=== PATIENT | male | born 1955 | race Caucasian/White ===

== ENCOUNTER 2016-06-21 07:28 | Observation (INO) ==
--- NOTE | 2016-06-21 07:50 | Emergency Department Note ---
Disposition Clinical Impression: Clot retention of urine Disposition: Admitted As Inpatient Condition: Fair Time of Disposition: 10:02 Male Urogenital HPI - General Chief complaint: ED Urogenital-Male Stated complaint: bleeding from urethra Time Seen by Provider: 06/21/16 07:39 Source: patient Limitations: no limitations Nursing Notes Reviewed: Yes Vital Signs Reviewed: Yes - History of Present Illness HPI Narrative: Patient is a 60-year-old male who presents to [facility] ED with a chief complaint of difficulty with urination. Patient recently underwent a procedure on 06/12/16 Bilateral retrograde pyelograms and transurethral resection of prostate by Dr. Branham. Patient states since then, he has been urinating blood. On Sunday, he passed a lot of clots but then was able to urinate without difficulty. Since last night for about 7 hours now , he has been in extreme pain and had difficulty with urinating just dribbling a small amount of blood. They spoke with Dr. Branham this morning who recommended they come to the emergency department. Past medical history significant for diabetes and chronic urinary tract infections. Pt Subjective Complaint: other (Hematuria), urinary retention Onset (ago): hour(s) Duration: gradually worsening Severity: severe Severity scale (1-10): 10 Quality: aching, sharp Improves with: none Worsens with: none recent surgery Reports: urinary retention, hematuria - Related Data Home Medications Medication Instructions Recorded Confirmed Metformin HCl [Glucophage] 1,000 mg PO BID 08/04/15 06/12/16 Multivitamin [Multi-Day Vitamins] 1 each PO DAILY 08/04/15 06/12/16 Cranberry Conc/C/Bacill Coag [Azo 1 each PO BID 06/12/16 06/12/16 Cranberry Tablet] Esomeprazole Magnesium [Nexium 22.3 mg PO DAILY 06/12/16 06/12/16 24Hr] Tamsulosin [Flomax] 0.4 mg PO BID 06/12/16 06/12/16 Previous Rx's Medication Instructions Recorded HYDROcodone/Acet 5/325 mg [[place] 2 tab PO Q4HR PRN #10 tablet 06/13/16 5-325 mg] Allergies Allergy/AdvReac Type Severity Reaction Status Date / Time No Known Allergies Allergy Verified 06/12/16 08:28 All systems ED: reviewed and negative except as stated. Past Medical History - Past Medical History Attestation: Yes The following information was validated with the patient. Source: patient Medical history: Reports: diabetes, GERD, other Surgical history: Reports: cholecystectomy, herniorrhaphy, orthopedic, other, other Psychiatric history: Reports: anxiety, depression - Social History Smoking Status: Never smoker Smokeless Tobacco Status: No Alcohol use: Reports: none Drug use: Reports: none Physical Exam - General Limitations: no limitations General appearance: alert, in no apparent distress - Head Head exam: normal inspection - Eye Eye exam: Present: normal appearance - ENT ENT exam: normal exam, normal oropharynx, mucous membranes moist, normal external ear exam - Neck Neck exam: Present: normal inspection, full ROM, trachea midline - Chest Chest inspection: Present: normal inspection, symmetric chest wall rise - Respiratory Respiratory exam: Present: normal lung sounds bilaterally - Cardiovascular Cardiovascular exam: Present: normal rhythm, tachycardia - Abdominal Exam Abdominal Exam: Present: soft, tenderness, normal bowel sounds Abdominal Tenderness: Present: suprapubic, severe - Extremities Exam Extremities exam: Present: normal inspection, full ROM - Neurological Exam Neurological exam: Present: alert, oriented X3, normal gait - Psychiatric Psychiatric exam: Present: normal affect, normal mood - Skin Skin exam: Present: warm, dry, intact, normal color Course Course Narrative: Patient seen and examined. Urinary retention with hematuria. Likely blood clots obstructing his urethra. We will get a urinalysis, place a 3-way Araujo for irrigation. Pain medication ordered. I spoke with urologist Dr. Branham who also recommends basic blood work. States he would like the urology cart at bedside and he will come irrigate the bladder. - Reevaluation(s) Reevaluation #1: Lab work appears unremarkable. Dr. Branham was down at the bedside and placed the three-way 24-[place] Isadora Araujo catheter. Patient tolerated procedure well. Patient admitted to urologist. Time: 10:01 Vital Signs Temperature 97.3 F L 06/21/16 07:32 Pulse Rate 83 06/21/16 07:32 Respiratory Rate 16 06/21/16 07:32 Blood Pressure 164/92 06/21/16 07:32 O2 Sat by Pulse Oximetry 94 L 06/21/16 07:32 Temperature 97.3 F L 06/21/16 07:32 Pulse Rate 69 06/21/16 09:35 Respiratory Rate 14 06/21/16 09:35 Blood Pressure 135/86 06/21/16 09:35 O2 Sat by Pulse Oximetry 93 L 06/21/16 09:35 Oxygen Delivery Oxygen Delivery Nasal Cannula Urogenital-Male - Medical Records Medical records reviewed: Yes I reviewed the patient's medical records. - Lab Data Lab results reviewed: Yes I reviewed the patient's lab results. Result diagrams: 06/21/16 08:19 06/21/16 08:19 Lab Results 06/21/16 06/21/16 Range/Units 08:19 08:19 WBC 10.6 (4.3-11.1) K/mcL RBC 4.88 (4.19-5.50) M/mcL Hgb 13.6 (12.9-16.9) g/dL Hct 41.2 (37.5-50.1) % MCV 84.4 (83.0-100.0) fL MCH 27.9 L (28.0-33.3) pg MCHC 33.0 (31.6-35.5) g/dL RDW 13.1 (11.5-14.5) % Plt Count 311 (140-400) K/mcL MPV 9.3 L (9.4-12.4) fL Immature Gran % 0.5 (0-4) % Seg Neutrophils % 77.7 % Lymphocytes % 15.0 % Monocytes % 4.9 % Eosinophils % 1.4 % Basophils % 0.5 % Neutrophils # 8.2 (1.6-8.9) K/mcL Lymphocytes # 1.6 (0.6-4.6) K/mcL Monocytes # 0.5 (0.0-1.3) K/mcL Eosinophils # 0.2 (0.0-0.6) K/mcL Basophils # 0.1 (0.0-0.2) K/mcL Immature Plt Fraction 2.3 (1.1-6.1) % Sodium 140 (136-145) mEq/L Potassium 4.2 (3.5-4.5) mEq/L Chloride 107 (98-109) mEq/L Carbon Dioxide 21 (19-29) mEq/L BUN 19 (8-26) mg/dL Creatinine 1.01 (0.72-1.25) mg/dL Est GFR ( Amer) > 60 (> 60) Est GFR (Non-Af Amer) > 60 (> 60) BUN/Creatinine Ratio 19 (6-26) Glucose 237 H (70-99) mg/dL Calculated Osmolality 300 (280-300) Calcium 9.9 (8.6-10.8) mg/dL - Radiology Data Radiology results reviewed: Yes I reviewed the patient's radiology results. Attestation Statement - Attestation Attestation: I examined this patient and my medical decision-making was reviewed with the Resident Physician. I agree with the documented findings, disposition and treatment plan as described.
[2016-06-21] MEDS ORDERED: *HR* HYDROmorphone (PF) 1 MG/ML SYRINGE IVP ONE ×3 (07:52→09:15)
[2016-06-21] MEDS ORDERED: Ondansetron 4 MG/2 ML VIAL IVP ONE (08:01)
[2016-06-21 08:25] LABS: Basophils # 0.1 K/mcL (0.0-0.2); Basophils % 0.5 %; Eosinophils # 0.2 K/mcL (0.0-0.6); Eosinophils % 1.4 %; Hematocrit 41.2 % (37.5-50.1); Hemoglobin 13.6 g/dL (12.9-16.9); Immature Granulocytes % 0.5 % (0-4); Immature Platelets 2.3 % (1.1-6.1); Lymphocytes # 1.6 K/mcL (0.6-4.6); Mean Corpuscular Hemoglobin 27.9 pg (28.0-33.3); Mean Corpuscular Volume 84.4 fL (83.0-100.0); Mean Platelet Volume 9.3 fL (9.4-12.4); Monocytes # 0.5 K/mcL (0.0-1.3); Monocytes % 4.9 %; Neutrophils # 8.2 K/mcL (1.6-8.9); Platelet Count 311 K/mcL (140-400); Red Blood Count 4.88 M/mcL (4.19-5.50); Red Cell Distribution Width 13.1 % (11.5-14.5); Segmented Neutrophils % 77.7 %
[2016-06-21 08:44] LABS: BUN/Creatinine Ratio 19 (6-26); Blood Urea Nitrogen 19 mg/dL (8-26); Calcium 9.9 mg/dL (8.6-10.8); Carbon Dioxide 21 mEq/L (19-29); Chloride 107 mEq/L (98-109); Glucose 237 mg/dL (70-99); Osmolality,Calculated 300 (280-300); Potassium 4.2 mEq/L (3.5-4.5); Sodium 140 mEq/L (136-145); eGFR For African Americans > 60 (> 60); eGFR For Non-African Americans > 60 (> 60)
[2016-06-21] MEDS ORDERED: *HR* Morphine 2 MG/ML SYRINGE IVP PRN (09:32)
[2016-06-21] MEDS ORDERED: *HR* HYDROcodone/Acet 5/325 mg TABLET PO PRN (09:32)
[2016-06-21] MEDS ORDERED: *HR* Promethazine 25 MG/ML VIAL IVP PRN (09:32)
[2016-06-21] MEDS ORDERED: Naloxone 0.4 MG/ML INJ IVP PRN (09:32)
[2016-06-21] MEDS ORDERED: *HR* Belladonna Alkaloids/Opium 30 MG RECTAL SUPPOSITORY RC PRN (09:32)
[2016-06-21] MEDS ORDERED: Dextrose Gel 15 GM PO PRN ×2 (09:33)
[2016-06-21] MEDS ORDERED: *HR* Dextrose 50 % in Water (Syg) 50 ML SYRINGE IVP PRN (09:33)
[2016-06-21] MEDS ORDERED: D5% in Water 1,000 ML IV PRN (09:33)
--- NOTE | 2016-06-21 09:38 | Urology History & Physical ---
Date of Encounter: 06/21/16 Time of Encounter: 09:36 Assessment and Plan (1) Clot retention of urine Current Visit: Yes Status: Acute In the emergency department patient was prepped and draped in normal sterile fashion. Yousif cc of lidocaine jelly was inserted into the meatus. 24-[place] hematuria catheter was inserted with 20 mL of sterile water placed in balloon. Immediate return of bloody urine was obtained. I then manually irrigated the catheter with a small amount of clots returned. Patient remained clear on moderate drip. Patient will be brought in for observation for continuous bladder irrigation. IV pain control and IV fluids. History of Present Illness Chief complaint: hematuria HPI: Mr. Dhillon is a 60 year old male who underwent bilateral retrograde pyelogram and TURP on 06/12/2016. Patient states that he initially voided well and started to have worsening difficulty voiding. He has had nothing but clots for the past couple of days. He was in severe 10 out of 10 lower abdominal discomfort. Past Med Surg Social Fam HX - Past Medical History Medical history: diabetes, GERD, other Psychiatric history: anxiety, depression - Past Surgical History Surgical History: cholecystectomy, herniorrhaphy, orthopedic, other, other - Social History Smoking Status: Never smoker Smokeless Tobacco Status: No Alcohol use: none Drug use: none Medications and Allergies Metformin HCl [Glucophage] 1,000 mg PO BID 08/04/15 [History] Multivitamin [Multi-Day Vitamins] 1 each PO DAILY 08/04/15 [History] Cranberry Conc/C/Bacill Coag [Azo Cranberry Tablet] 1 each PO BID 06/12/16 [ History] Esomeprazole Magnesium [Nexium 24Hr] 22.3 mg PO DAILY 06/12/16 [History] Tamsulosin [Flomax] 0.4 mg PO BID 06/12/16 [History] HYDROcodone/Acet 5/325 mg [[place] 5-325 mg] 2 tab PO Q4HR PRN #10 tablet [Rx] Allergies No Known Allergies Allergy (Verified 06/12/16 08:28) Review of Systems - Constitutional no chills - EENT Nose, mouth and throat: no dizziness - Cardiovascular no chest pain - Respiratory no cough Exam Initial Vital Signs Temp Pulse Resp BP Pulse Ox 97.3 F L 83 16 164/92 94 L 06/21/16 07:32 06/21/16 07:32 06/21/16 07:32 06/21/16 07:32 06/21/16 07:32 - General physical appearance Present: well developed - ENT Present: normal nares - Neck Present: no masses - Respiratory Present: normal respiratory effort - Cardiovascular Cardiovascular exam IM: RRR Urology Results - Labs 06/21/16 08:19 06/21/16 08:19 Abnormal lab results MCH 27.9 pg (28.0-33.3) L 06/21/16 08:19 MPV 9.3 fL (9.4-12.4) L 06/21/16 08:19 Glucose 237 mg/dL (70-99) H 06/21/16 08:19 All other labs normal.
[2016-06-21 11:10] LABS: Bilirubin,Urine Negative (Negative); Blood,Urine Large (Negative); Clarity,Urine Cloudy (Clear); Color,Urine Red (Yellow); Glucose,Urine (UA) Normal (Normal); Ketones,Urine Negative (Negative); Leukocyte Esterase,Urine Trace (Negative); Nitrite,Urine Negative (Negative); Protein,Urine Negative (Neg-Trace); Specific Gravity,Urine 1.005 (1.010-1.025); Urobilinogen,Urine Normal (Normal)
[2016-06-21 11:18] LABS: Bacteria,Urine Few per hpf (None-Few); Hyaline Casts,Urine None Seen per lpf (None-Few); RBC,Urine 50-100 per hpf (0-3); Squamous Epithelial Cell,Urine Few per lpf (None-Few); WBC,Urine 0-3 per hpf (0-3)
[2016-06-21] MEDS: 0.9 % Sodium Chloride 1,000 ML IVC SCH ×2 (11:20→20:28)
[2016-06-21] MEDS: Levofloxacin 500 MG/100 ML 500 MG/100 ML BAG IVPB SCH (11:21)
[2016-06-21] MEDS: Insulin LISPRO 300 UNITS/3 ML VIAL SQ SCH ×2 (12:42→17:11)
[2016-06-21] MEDS: *HR* Morphine 2 MG/ML SYRINGE IVP PRN (19:50)
[2016-06-22] MEDS: *HR* Morphine 2 MG/ML SYRINGE IVP PRN ×2 (00:19→04:18)
[2016-06-22] MEDS: 0.9 % Sodium Chloride 1,000 ML IVC SCH (04:19)
[2016-06-22] MEDS: Insulin LISPRO 300 UNITS/3 ML VIAL SQ SCH ×2 (08:03→12:28)
[2016-06-22 11:34] VITALS: BP 129/75
[2016-06-22] MEDS: Levofloxacin 500 MG/100 ML 500 MG/100 ML BAG IVPB SCH (12:31)
--- NOTE | 2016-06-22 13:41 | Discharge Summary ---
Date of Encounter: 06/22/16 Time of Encounter: 13:39 - Discharge Diagnosis (1) Clot retention of urine Priority: Primary Status: Acute - Discharge Medications Prescriptions: HYDROcodone/Acet 5/325 mg [[place] 5-325 mg] 2 tab PO Q4HR PRN #8 tablet PRN Reason: Mild Pain Ondansetron ODT [Zofran ODT] 4 mg SL Q6HR #20 tab.rapdis Home Medications: Metformin HCl [Glucophage] 1,000 mg PO BID 08/04/15 [History] Multivitamin [Multi-Day Vitamins] 1 each PO DAILY 08/04/15 [History] Cranberry Conc/C/Bacill Coag [Azo Cranberry Tablet] 1 each PO BID 06/12/16 [ History] Esomeprazole Magnesium [Nexium 24Hr] 22.3 mg PO DAILY 06/12/16 [History] Tamsulosin [Flomax] 0.4 mg PO BID 06/12/16 [History] HYDROcodone/Acet 5/325 mg [[place] 5-325 mg] 2 tab PO Q4HR PRN #10 tablet [Rx] HYDROcodone/Acet 5/325 mg [[place] 5-325 mg] 2 tab PO Q4HR PRN #8 tablet 06/22/16 [Rx] Ondansetron ODT [Zofran ODT] 4 mg SL Q6HR #20 tab.rapdis 06/22/16 [Rx] Allergies/Adverse Reactions: Allergies No Known Allergies Allergy (Verified 06/12/16 08:28) Labs on day of discharge: Labs from last 24 hours 06/22/16 06/22/16 06/21/16 11:31 07:40 19:33 POC Glucose 112 H 143 H 133 H 06/21/16 16:15 POC Glucose 119 H Date of admission: 06/21/16 09:15 Primary care physician: Curtis Starkey MD Discharging clinician: Escobar Branham Anticipated date of discharge: 06/22/16 - Patient Status Disposition: Home, Self-Care Condition: Fair Overall status at discharge: patient is progressing back to baseline - Discharge Instructions Follow Up With: Curtis Starkey MD [Primary Care Provider] - Escobar Branham MD [Partnered Physician] - (next sunday) Additional Instructions: to keep young in place. cath plug in irrigation port. - Diet and Activity Activity: increase activity as tolerated Diet: advance to your usual diet - Hospital Course Hospital course: Mr. Dhillon is a 60 year old male who was brought in for irrgation from urinary clot retention. irrigation overnight cleared urine. doing well Time spent discussing smoking cessation with patient: 3 to 10 minutes - Time Spent with Patient Total time spent providing and/or coordinating discharge services: Less than 30 minutes Exam Initial Vital Signs Temp Pulse Resp BP Pulse Ox 97.3 F L 83 16 164/92 94 L 06/21/16 07:32 06/21/16 07:32 06/21/16 07:32 06/21/16 07:32 06/21/16 07:32 - General physical appearance Present: well developed - Respiratory Present: normal respiratory effort - Cardiovascular Cardiovascular exam IM: RRR - Genitourinary other (clear urine off irrgation)
== END 2016-06-22 14:44 | disposition home or self-care (01) ==
LOC: EMEROO 07:28 → 3BNU 07:28
PROVIDERS: ADMIT Urology; ATTEND Urology